=== PATIENT | male | born 1990 | race Two or more races ===

== ENCOUNTER 2020-03-15 13:01 | Emergency (ER) | payer MEDICAID, OTHER ==
[~2020-03-15] VITALS: Ht 180.3 cm; Wt 77.1 kg
[2020-03-15 14:31] VITALS: BP 143/82
== END 2020-03-15 17:54 | disposition home or self-care (01) ==
LOC: ER 13:01
DX: R06.02 Shortness of breath (principal); R05 Cough; Z20.828 Contact with and (suspected) exposure to other viral communicable diseases
CPT/HCPCS: 36415; 71045; 87426